=== PATIENT | female | born 1975 | race Caucasian/White ===

== ENCOUNTER 2019-10-08 17:11 | Emergency (ER) | payer OTHER, SELFPAY ==
[2019-10-08 17:19] VITALS: BP 142/83; PULSE 100; RESP 16; TEMP 36.8; O2SAT 99
--- NOTE | 2019-10-08 17:44 | ED.ABDPAIN ---
HPI - Abdominal Pain General Chief Complaint: Dental/Oral Stated Complaint: tooth pain Time Seen by Provider: 10/08/19 17:13 Source: patient Mode of arrival: ambulatory Limitations: no limitations History of Present Illness HPI narrative: Patient is a 44-year-old female who presents for dental pain to the lower gums for the last several days with history of gross decay notes aching pain worse with eating patient denies fever chills vomiting or URI symptoms. Patient does not have a dental appointment plan. Has not taken anything for symptoms Related Data Allergies Allergy/AdvReac Type Severity Reaction Status Date / Time ibuprofen AdvReac Hives Verified 10/08/19 17:24 Review of Systems Review of Systems: All systems reviewed & are unremarkable except as noted in HPI and below PMFSH Social History Social History (Updated 10/08/19 @ 17:48 by Rudi Whitehead PA-C) Smoking status: Current every day smoker Gender identity (if verbalized by the patient): Female Exam Narrative: Exam Narrative: GENERAL: Well-appearing, well-nourished, and in no acute distress. HEAD: Normocephalic, atraumatic. EYES: PERRLA and EOMI. ENT: Nares clear, no rhinorrhea or epistaxis. Mucous membranes moist. Oropharynx without tonsillar hypertrophy exudate or other lesions. Patient was slightly erythematous and swollen gumline with green plaques in between the teeth. Uvula midline no trismus or drooling NECK: Supple. No adenopathy or masses. CHEST: Clear to auscultation. No respiratory distress. No wheezes rales or rhonchi HEART: Regular rate and rhythm. No murmur heard. EXTREMITIES: Normal range of motion. No edema. SKIN: Warm, dry, no rash. NEURO: No focal deficits. Alert and oriented x3. PSYCH: Normal mood and affect. Course Course Emergency Course: Patient in the room in no distress aware of case findings treatment plan and diagnosis agreeing to follow-up as directed or to return if symptoms worsen Vital Signs Vital signs: Vital Signs Temperature 98.3 F 10/08/19 17:19 Pulse Rate 100 10/08/19 17:19 Respiratory Rate 16 10/08/19 17:19 Blood Pressure 142/83 H 10/08/19 17:19 Pulse Oximetry 99 10/08/19 17:19 Temperature 98.3 F 10/08/19 17:19 Pulse Rate 100 10/08/19 17:19 Respiratory Rate 16 10/08/19 17:19 Blood Pressure 142/83 H 10/08/19 17:19 Pulse Oximetry 99 10/08/19 17:19 MDM - Abdominal Pain MDM Narrative Medical decision making narrative: Patients pain and complaint coupled with physical findings are consistent with dentalgia. There are no focal signs of space occupying lesions that are compromising to the airway. The floor of the mouth is soft with no signs of Ludwigs Angina. Patient is without trismus or drooling and able to swallow secretions. Patient is felt appropriate for discharge home with dental follow up. Discharge Plan Discharge Clinical Impression: Gingivitis Patient Disposition: Home, Self-Care Condition: Stable Instructions: Antibiotic Form, Gingivitis (ED) Additional Instructions: Follow-up with dentistry in the next 7 days for reevaluation. Go to ER for shortness of breath, difficulty breathing, chest pain, fever/chills, weakness, nauseau/vomitting, unable to swallow or open the mouth etc. or any other concerns. Take any prescribed medications as directed. If you do not have a drug allergy to tylenol and can tolerate it then take tylenol as needed for discomfort/pain. Prescriptions: New chlorhexidine gluconate [Peridex] 0.12 % mouthwash 15 ml MUCOUS MEM BID Qty: 1500 RF: 0 amoxicillin 500 mg capsule 500 mg PO TID 10 Days Qty: 30 RF: 0 Follow-up/Referrals: PHYSICIAN,TRIALS MANAGER [Primary Care Provider] - Stand Alone Forms: Work/School Release IP
== END 2019-10-08 17:59 | disposition home or self-care (01) ==
PROVIDERS: Emergency Provider Emergency Medicine
DX: K05.10 Chronic gingivitis, plaque induced (principal); F17.200 Nicotine dependence, unspecified, uncomplicated
CPT/HCPCS: 99283

== ENCOUNTER 2020-11-17 10:55 | Emergency (ER) | payer OTHER, SELFPAY ==
[2020-11-17 11:00] VITALS: BP 134/95; PULSE 115; RESP 16; TEMP 37.6; O2SAT 99
--- NOTE | 2020-11-17 11:03 | ED.FEMALEGU ---
HPI - Female Genitourinary General Chief complaint: Urogenital-Female Stated complaint: UTI SYMPTOMS Time Seen by Provider: 11/17/20 11:04 Source: patient and RN notes reviewed History of Present Illness HPI Narrative: Patient is a 45-year-old female who presents the urgent care with complaints of burning with urination and suprapubic pressure with low back pain for a month and a half. Patient states that she has had frequent UTIs in the past but has not had one for approximately 1 year. Patient denies of any blood in the urine, nausea, vomiting, fever. Patient states that she has been taking Azo to mask the symptoms . No other acute complaints. No acute distress noted. Patient aware of the plan of care. Some parts of this dictation were generated by voice recognition software and may contain typographical and/or grammatical inaccuracies. Related Data Allergies Allergy/AdvReac Type Severity Reaction Status Date / Time ibuprofen AdvReac Hives Verified 10/08/19 17:24 Review of Systems Review of Systems: CONSTITUTIONAL: Denies fever, chills, or sweats. EYES: Denies visual changes, redness, or discharge. ENT: Denies rhinorrhea, congestion, sore throat, or otalgia. CARDIOVASCULAR: Denies chest pain, palpitations, or edema. RESPIRATORY: Denies cough or dyspnea. GASTROINTESTINAL: Denies abdominal pain, nausea, vomiting, or diarrhea. GENITOURINARY: Reports of dysuria, suprapubic pressure SKIN: Denies rash or itching. MUSCULOSKELETAL: Denies back pain, joint pain, or myalgia. NEUROLOGIC: Denies headache, numbness, or weakness. All other systems reviewed are negative, except as documented in HPI. PMFSH Social History Social History (Updated 10/08/19 @ 17:48 by Rudi Whitehead PA-C) Smoking status: Current every day smoker Gender identity (if verbalized by the patient): Female Comments At the time of my signature, I reviewed and agree with the nursing past medical, surgical, social, and family history. There is no relevant family history pertinent to the patient complaint. Exam Narrative: GENERAL: This is a well-nourished, well-developed patient, in no apparent distress. HEAD: normocephalic, atraumatic. EYES: PERRL. Sclera clear/white. Vision is grossly intact. EARS: External ears normal NOSE: External nose normal with no obvious nasal discharge, nares without redness, no rhinorrhea. THROAT: Mucous membranes moist NECK: Neck supple CARDIOVASCULAR: Regular rate and rhythm without murmurs, gallops, or rubs. RESPIRATORY: Clear to auscultation. Breath sounds equal bilaterally. No wheezes, rales, or rhonchi. GASTROINTESTINAL: Abdomen soft, suprapubic tenderness, nondistended. Bowel sounds are active. SKIN: warm, intact with no suspicious lesions or rash, good texture and turgor. NEURO: awake, alert, and oriented to person, place and time. There were no obvious focal neurologic abnormalities. EXTREMITIES: No clubbing, cyanosis, or edema. BACK: Bilateral CVA tenderness Course Vital Signs Vital signs: Vital Signs Temperature 99.6 F 11/17/20 11:00 Pulse Rate 115 H 11/17/20 11:00 Respiratory Rate 16 11/17/20 11:00 Blood Pressure 134/95 H 11/17/20 11:00 Pulse Oximetry 99 11/17/20 11:00 Temperature 99.6 F 11/17/20 11:00 Pulse Rate 115 H 11/17/20 11:00 Respiratory Rate 16 11/17/20 11:00 Blood Pressure 134/95 H 11/17/20 11:00 Pulse Oximetry 99 11/17/20 11:00 Reviewed-patient is informed that they may have pre-hypertension or hypertension based on a blood pressure reading in the department. I recommend the patient call the primary care provider listed on their discharge instructions or a physician of their choice this week to arrange follow-up for further evaluation of possible pre-hypertension or hypertension. MDM - Female Genitourinary MDM Narrative Medical decision making narrative: Reviewed lab results with the patient. She is aware that urine analysis does have a trace amount of bacteria
== END 2020-11-17 11:20 | disposition home or self-care (01) ==
PROVIDERS: Emergency Provider Nurse Practitioner Family
DX: N39.0 Urinary tract infection, site not specified (principal); F17.200 Nicotine dependence, unspecified, uncomplicated
CPT/HCPCS: 81003; 87086; 87088; 99213; G0463

== ENCOUNTER 2021-09-05 15:29 | Emergency (ER) | payer OTHER, SELFPAY ==
[2021-09-05 15:34] VITALS: BP 145/83; PULSE 91; RESP 16; TEMP 36; O2SAT 99
--- NOTE | 2021-09-05 15:40 | ED.EAR ---
HPI - Ear Problem General Chief complaint: Ear Stated complaint: l earache Time Seen by Provider: 09/05/21 15:41 Source: patient and RN notes reviewed History of Present Illness HPI Narrative: Patient is a 46-year-old female who presents the urgent care with complaints of left ear pain. Patient states it started 4 days ago and she is continuously rubbed on the ear. Denies of any use of [id number] drops, Q-tips, water or peroxide in the ear. Patient has not taken anything for her pain. Denies any drainage, fever or nausea. Denies of any other upper respiratory complaints. Denies of any exposure to illness. No other acute complaints. No acute distress noted. Patient aware of the plan of care. Some parts of this dictation were generated by voice recognition software and may contain typographical and/or grammatical inaccuracies. Related Data Allergies Allergy/AdvReac Type Severity Reaction Status Date / Time ibuprofen AdvReac Hives Verified 10/08/19 17:24 Review of Systems Review of Systems: CONSTITUTIONAL: Denies fever, chills, or sweats. EYES: Denies visual changes, redness, or discharge. ENT: Denies rhinorrhea, congestion, sore throat. Reports of left otalgia CARDIOVASCULAR: Denies chest pain, palpitations, or edema. RESPIRATORY: Denies cough or dyspnea. GASTROINTESTINAL: Denies abdominal pain, nausea, vomiting, or diarrhea. GENITOURINARY: Denies dysuria or hematuria. SKIN: Denies rash or itching. MUSCULOSKELETAL: Denies back pain, joint pain, or myalgia. NEUROLOGIC: Denies headache, numbness, or weakness. All other systems reviewed are negative, except as documented in HPI. [facility] Social History Social History (Updated 10/08/19 @ 17:48 by Rudi Whitehead, ANGEL) Smoking status: Current every day smoker Gender identity (if verbalized by the patient): Female Comments At the time of my signature, I reviewed and agree with the nursing past medical, surgical, social, and family history. There is no relevant family history pertinent to the patient complaint. Exam Narrative: GENERAL: This is a well-nourished, well-developed patient, in no apparent distress. HEAD: normocephalic, atraumatic. EYES: PERRL. Sclera clear/white. Vision is grossly intact. EARS: External ears normal, mild erythema without edema or drainage to the left auditory canal. Right auditory canals clear and without drainage, TMs normal without perforation. Hearing grossly intact. NOSE: External nose normal with no obvious nasal discharge, nares without redness, no rhinorrhea. THROAT: Mucous membranes moist, posterior pharynx clear. NECK: Neck supple CARDIOVASCULAR: Regular rate and rhythm without murmurs, gallops, or rubs. RESPIRATORY: Clear to auscultation. Breath sounds equal bilaterally. No wheezes, rales, or rhonchi. SKIN: warm, intact with no suspicious lesions or rash, good texture and turgor. NEURO: awake, alert, and oriented to person, place and time. There were no obvious focal neurologic abnormalities. EXTREMITIES: No clubbing, cyanosis, or edema. Course Course Level of Care: Express Care Visit Vital Signs Vital signs: Vital Signs Temperature 96.8 F L 09/05/21 15:34 Pulse Rate 91 09/05/21 15:34 Respiratory Rate 16 09/05/21 15:34 Blood Pressure 145/83 H 09/05/21 15:34 Pulse Oximetry 99 09/05/21 15:34 Temperature 96.8 F L 09/05/21 15:34 Pulse Rate 91 09/05/21 15:34 Respiratory Rate 16 09/05/21 15:34 Blood Pressure 145/83 H 09/05/21 15:34 Pulse Oximetry 99 09/05/21 15:34 Reviewed-patient is informed that they may have pre-hypertension or hypertension based on a blood pressure reading in the department. I recommend the patient call the primary care provider listed on their discharge instructions or a physician of their choice this week to arrange follow-up for further evaluation of possible pre-hypertension or hypertension. Medical Decision Making MDM Narrative Medical decision making narrat
== END 2021-09-05 15:57 | disposition home or self-care (01) ==
PROVIDERS: Emergency Provider Nurse Practitioner Family
DX: H92.02 Otalgia, left ear (principal); F17.200 Nicotine dependence, unspecified, uncomplicated
CPT/HCPCS: 99213; G0463

== ENCOUNTER 2021-10-10 16:34 | Emergency (ER) | payer OTHER, SELFPAY ==
--- NOTE | ~2021-10-10 | CT_ITS ---
EXAMINATION: CT cervical spine wo con DATE: 10/10/2021 19:23 INDICATION: Left arm pain radiating to the shoulder. TECHNIQUE: Computed tomography (CT) of the cervical spine was performed without intravenous contrast. The dose-length product was 119 mGy-cm. Automated exposure control and iterative reconstruction technique were employed. COMPARISON: None FINDINGS: Vertebral body heights are maintained. There is mild degenerative disc disease at C5-6. Wit h mild uncinate degenerative change at C5-6. There is emphysema of the lung apices. No significant pa raspinal soft tissue abnormality. There is mild carotid atherosclerosis. No acute fracture or traumat ic malalignment. No evidence for perched facet. Craniovertebral junction within normal limits. IMPRESSION: 1. No acute abnormality of the cervical spine. 2: Mild cervical spondylosis at C5-6. 3: Emphysema. Reviewed, dictated and finalized at location A.
--- NOTE | ~2021-10-10 | XR_ITS ---
XR shoulder LT min 2V DATE: 10/10/2021 17:37 INDICATION: Left shoulder pain. No injury. TECHNIQUE: 4 views COMPARISON: None FINDINGS: There is minimal degenerative spurring of the left acromioclavicular joint. No fracture or dislocation, periosteal reaction or bone destruction or abnormal soft tissue calcifica tion of the left shoulder. IMPRESSION: Minimal degenerative change at the left acromioclavicular joint Reviewed, dictated and finalized at location A.
[2021-10-10 16:48] VITALS: BP 104/74; PULSE 106; RESP 16; TEMP 37.1; O2SAT 100
--- NOTE | 2021-10-10 16:58 | ECG_ITS ---
Measurements Intervals [place] Rate: 79 P: 74 NV: 112 QRS: 82 QRSD: 82 T: 70 QT: 360 QTc: 414 Interpretive Statements SINUS RHYTHM WITH SHORT NV INTERVAL BORDERLINE ECG Electronically Signed On 10-10-2021 19:46:[address] D[address]
--- NOTE | 2021-10-10 18:32 | ED.UPPEXIN ---
HPI - Extremity Injury (Upper) General Chief Complaint: Extremity Injury, Upper Stated Complaint: L shoulder pain Time Seen by Provider: 10/10/21 18:22 Source: patient Mode of arrival: ambulatory Limitations: no limitations History of Present Illness HPI narrative: This is a 46-year-old female that presents to the emergency department for left shoulder pain. Ongoing over the last 4 days. No recent injury or trauma. The pain is in the posterior aspect of the shoulder and radiates into her arm. She also reports she has some tingling in her left arm. Denies fever, edema, chest pain, shortness of breath, or focal numbness or weakness. Related Data Allergies Allergy/AdvReac Type Severity Reaction Status Date / Time ibuprofen AdvReac Hives Verified 10/08/19 17:24 Review of Systems Review of Systems: CONSTITUTIONAL: Denies fever CARDIOVASCULAR: Denies chest pain RESPIRATORY: Denies dyspnea. MUSCULOSKELETAL: Reports back pain, joint pain, and myalgia. NEUROLOGIC: Denies numbness, or weakness. All systems reviewed & are unremarkable except as noted in HPI and below PMFSH Past Medical History Medical History (Updated 10/10/21 @ 20:44 by Honey Mathias PA-C) No active medical problems Social History Social History (Updated 10/08/19 @ 17:48 by Rudi Whitehead, PAIanC) Smoking status: Current every day smoker Gender identity (if verbalized by the patient): Female Exam Narrative: GENERAL: Well-appearing, well-nourished, and in no acute distress. HEAD: Normocephalic, atraumatic. EYES: EOMI. CHEST: Clear to auscultation. No respiratory distress. No wheezes rales or rhonchi HEART: Regular rate and rhythm. No murmur heard. Normal peripheral pulses. EXTREMITIES: Pain is reproduced with active range of motion in the left shoulder. Decreased active ROM in the left shoulder above 90 degrees due to pain. Tender to palpation of the left thoracic paraspinal musculature. No edema, erythema or warmth. Normal radial pulse. Strength equal in bilateral upper extremities (5/5) SKIN: Warm, dry, no rash. NEURO: No focal deficits. Alert and oriented x3. PSYCH: Normal mood and affect Course Vital Signs Vital signs: Vital Signs Temperature 98.7 F 10/10/21 16:48 Pulse Rate 106 H 10/10/21 16:48 Respiratory Rate 16 10/10/21 16:48 Blood Pressure 104/74 10/10/21 16:48 Pulse Oximetry 100 10/10/21 16:48 Oxygen Delivery Room Air 10/10/21 16:48 Temperature 98.7 F 10/10/21 16:48 Pulse Rate 86 10/10/21 21:17 Respiratory Rate 18 10/10/21 21:17 Blood Pressure 156/76 H 10/10/21 21:17 Pulse Oximetry 100 10/10/21 21:17 Oxygen Delivery Room Air 10/10/21 16:48 MDM - Extremity Injury (Upper) MDM Narrative Medical decision making narrative: Patient presents to the emergency department for left arm pain. Ongoing over the last 4 days. No recent injury or trauma. Patient is neurovascularly intact. Left shoulder x-ray shows minimal degenerative change at the left AC joint. CT scan of the cervical spine is without acute abnormalities. Shows mild cervical spondylosis at C5/C6. EKG without concerning ST changes. Patient reports relief with Tylenol and Valium. Will be prescribed steroid taper as well. Will be given neurosurgery for follow-up. She was given warnings to return to the ER Imaging Data Radiologist's impression: ITS Impressions Shoulder X-Ray 10/10/21 17:39 IMPRESSION: Minimal degenerative change at the left acromioclavicular joint Cervical Spine CT 10/10/21 19:31 IMPRESSION: 1. No acute abnormality of the cervical spine. 2: Mild cervical spondylosis at C5-6. 3: Emphysema. ECG Data EKG #1: ECG completion date: 10/10/21 EKG Interpretation: normal rate, sinus rhythm, no ST changes and normal QT Critical Care Time Critical Care Time Critical Care Time: No Discharge Plan Discharge Clinical Impression: Cervical radiculopathy, Muscle sp
[2021-10-10] MEDS: ACETAMINOPHEN 500 MG TABLET 1000 MG PO (19:25)
[2021-10-10] MEDS: diazePAM INJ (*CRX) 10 MG/2 ML SYRINGE 5 MG IM (19:26)
[2021-10-10 19:30] VITALS: BP 166/92; PULSE 68; RESP 16; O2SAT 100
[2021-10-10 21:17] VITALS: BP 156/76; PULSE 86; RESP 18; O2SAT 100
== END 2021-10-10 21:17 | disposition home or self-care (01) ==
PROVIDERS: Emergency Provider General Practice
DX: M54.12 Radiculopathy, cervical region (principal); M62.830 Muscle spasm of back; F17.200 Nicotine dependence, unspecified, uncomplicated
CPT/HCPCS: 72125; 73030; 93005; 96372; 99284; A9270; J3360

== ENCOUNTER 2022-01-03 15:28 | Outpatient (CLI) | payer OTHER, SELFPAY ==
--- NOTE | ~2022-01-03 | MR_ITS ---
EXAMINATION: MR cervical spine wo con DATE: 01/03/2022 16:07 INDICATION: Neck pain. TECHNIQUE: Magnetic resonance imaging (MRI) of the cervical spine was performed without intravenous c ontrast. Sequences included sagittal T2-weighted FSE, sagittal T2-weighted FS FSE, sagittal T1-weight ed FSE, axial MERGE, and axial T2-weighted FSE. COMPARISON: CT cervical spine 10/10/2021 FINDINGS: There is 4 degrees levocurvature of cervical spine. Vertebral body heights are normal. Ther e is moderately decreased disc height at C5-C6. The spinal cord signal intensity is normal. The follo wing disc levels are specifically discussed: C2-C3: The disc does not extend beyond the endplate margin. There is no uncovertebral joint osteoarth ritis. There is moderate bilateral facet joint osteoarthritis. There is no neural foraminal stenosis. There is no central canal stenosis. C3-C4: There is a central protrusion. There is mild left uncovertebral joint osteoarthritis. There is mild bilateral facet joint osteoarthritis. There is no neural foraminal stenosis. There is no centra l canal stenosis. C4-C5: There is a central protrusion. There is mild left uncovertebral joint osteoarthritis. There is mild right facet joint osteoarthritis. There is no neural foraminal stenosis. There is no central ca nal stenosis. C5-C6: The disc is bulging. There is severe bilateral uncovertebral joint osteoarthritis. There is mi ld right facet joint osteoarthritis. There is mild bilateral neural foraminal stenosis. There is mild central canal stenosis. C6-C7: The disc does not extend beyond the endplate margins. There is mild right and moderate left un covertebral joint osteoarthritis. There is no facet joint osteoarthritis. There is mild left neural f oraminal stenosis. There is no central canal stenosis. C7-T1: The disc does not extend beyond the endplate margin. There is no uncovertebral joint osteoarth ritis. There is mild bilateral facet joint osteoarthritis. There is no neural foraminal stenosis. The re is no central canal stenosis. IMPRESSION: 1. Moderate spondylosis at C5-C6 and mild spondylosis at other levels. Reviewed, dictated and finalized at location A.
--- NOTE | ~2022-01-03 | XR_ITS ---
XR cervical spine 4-5V 01/03/2022 16:13 Indication: Cervicalgia Procedure: 5 views of the cervical spine including flexion/extension views Comparison: No prior studies for comparison. Findings: There is degenerative disc disease at C5-6. No prevertebral soft tissue swelling. There is mild uncinate hypertrophy at C3-4 and C4-5. Lung apices are normal. No significant alteration of alig nment with flexion/extension. No fracture or traumatic malalignment. Impression: 1: Mild cervical spondylosis. Reviewed, dictated and finalized at location A. Impression: 1: Mild cervical spondylosis.
== END 2022-01-03 15:29 | disposition home or self-care (01) ==
PROVIDERS: Visit Provider Neurological Surgery
DX: M47.813 Spondylosis without myelopathy or radiculopathy, cervicothoracic region (principal); M48.03 Spinal stenosis, cervicothoracic region
CPT/HCPCS: 72050; 72141

== ENCOUNTER 2023-07-21 09:54 | Emergency (ER) | payer OTHER, SELFPAY ==
[2023-07-21 09:58] VITALS: BP 145/80; RESP 16; TEMP 37.1; O2SAT 99
--- NOTE | 2023-07-21 10:16 | ED.EAR ---
HPI - Ear Problem General Chief complaint: Ear Stated complaint: Earache Time Seen by Provider: 07/21/23 10:06 Source: patient and RN notes reviewed Mode of arrival: ambulatory Limitations: no limitations History of Present Illness HPI Narrative: Patient presents today complaining of a 4 day history of bilateral ear canal pain, swelling, and pressure, right greater than left. Denies any injury or trauma. She does not wear ear plugs or ear buds frequently. She has not been doing a lot of swimming recently. She currently rates her pain 7/10 and has been taking Tylenol with mild relief. Her hearing is normal. Related Data Home Medications Medication Instructions Recorded Confirmed acetaminophen 500 mg tablet 1,000 mg PO Q6H PRN Pain 12/20/21 07/21/23 (Tylenol Extra Strength) Allergies Allergy/AdvReac Type Severity Reaction Status Date / Time ibuprofen AdvReac Hives Verified 07/21/23 10:00 Review of Systems Review of Systems: CONSTITUTIONAL: Denies body aches, fever, chills, or sweats. EYES: Denies visual changes, redness, or discharge. ENT: Denies rhinorrhea, congestion, sore throat. + bilateral ear pain CARDIOVASCULAR: Denies chest pain, palpitations, or edema. RESPIRATORY: Denies cough or dyspnea. GASTROINTESTINAL: Denies abdominal pain, nausea, vomiting, or diarrhea. GENITOURINARY: Denies dysuria or hematuria. SKIN: Denies rash, itching, or wounds. MUSCULOSKELETAL: Denies back pain, joint pain, or myalgia. NEUROLOGIC: Denies headache, numbness, tingling, or weakness. PSYCH: Denies depression or anxiety. [facility] Past Medical History Medical History No active medical problems Social History Social History Smoking status: Current every day smoker Gender identity (if verbalized by the patient): Female Comments At time of signature, I have reviewed and agree with nursing past medical, surgical, social and family history unless otherwise noted. Please see nursing chart for further information. There is no relevant family history pertinent to the presenting complaint Exam Narrative: GENERAL: Well-appearing, well-nourished, and in no acute distress. HEAD: Normocephalic, atraumatic. EYES: EOMI. No redness or drainage. Conjunctivae normal. ENT: Mucous membranes pink and moist. Nares clear. No rhinorrhea. TMs normal bilaterally. Bilateral movement tenderness and tragal tenderness, right greater than left. Bilateral pain with ear probe insertion. Bilateral ear canal mild erythema without edema. No drainage. NECK: Normal AROM. CHEST: No respiratory distress. EXTREMITIES: Normal range of motion. No edema. SKIN: Warm, dry, no rash. Capillary refill normal. Normal skin turgor. NEURO: No focal deficits. Alert and oriented x3. Gait steady. PSYCH: Normal affect. No signs of depression or anxiety. Course Course Level of Care: Express Care Visit Vital Signs Vital signs: Vital Signs Temperature 98.8 F 07/21/23 09:58 Respiratory Rate 16 07/21/23 09:58 Blood Pressure 145/80 H 07/21/23 09:58 Pulse Oximetry 99 07/21/23 09:58 Oxygen Delivery Room Air 07/21/23 09:58 Temperature 98.8 F 07/21/23 09:58 Respiratory Rate 16 07/21/23 09:58 Blood Pressure 145/80 H 07/21/23 09:58 Pulse Oximetry 99 07/21/23 09:58 Oxygen Delivery Room Air 07/21/23 09:58 Reviewed Medical Decision Making MDM Narrative Medical decision making narrative: Patient will be treated with a course of Ciprodex for bilateral otitis externa. She has been instructed to follow-up with PCP if symptoms do not improve. Anticipatory guidance given. Differential Diagnosis Differential Diagnosis: Otitis media, otitis externa, ruptured TM, serous otitis, eustachian tube dysfunction, cerumen impaction Vital Signs Vital Signs: Vital Signs Temperature 98.8 F
== END 2023-07-21 10:25 | disposition home or self-care (01) ==
PROVIDERS: Emergency Provider Nurse Practitioner
DX: H60.503 Unspecified acute noninfective otitis externa, bilateral (principal); F17.200 Nicotine dependence, unspecified, uncomplicated
CPT/HCPCS: 99213; G0463

== ENCOUNTER 2024-08-31 17:22 | Emergency (ER) | payer OTHER, SELFPAY ==
--- NOTE | ~2024-08-31 | XR_ITS ---
XR elbow RT min 3V Ordering provider: Tere Stout NP History: . pain after hitting on the window . Comparison: None. FINDINGS: BONES: No acute fracture or dislocation. JOINT SPACES: Normal. SOFT TISSUES: Unremarkable. No definite joint effusion. IMPRESSION: No acute osseous abnormality of the right elbow. Reviewed, dictated and finalized at location A.
[2024-08-31 17:30] VITALS: BP 162/85; PULSE 76; RESP 16; TEMP 36.6; O2SAT 100
--- NOTE | 2024-08-31 17:38 | ED_ITS ---
HPI - Extremity Injury (Upper) General Chief Complaint: Extremity Injury, Upper Stated Complaint: Injured Elbow Time Seen by Provider: 08/31/24 17:39 Source: patient, RN notes reviewed and old records reviewed Mode of arrival: ambulatory Limitations: no limitations History of Present Illness HPI narrative: 49 year old female who presents to [facility] with complaint of pulling the duct tape off of window and tape gave way and her arm hit the window sill right on the olecranon area with pain and bruising to right elbow. Patient reports that she has throbbing pain to her elbow and some pain that goes down her arm with some tingling to fingers. Patient has increased discomfort to right elbow area with pronation and supination of forearm. Patient does have some bruising noted to the right elbow with minimal swelling. MD complaint: injury to: right and elbow Onset (ago): day(s) (2) Place: home Severity scale (1-10): 8 Exacerbating factors: movement of extremity Treatments prior to arrival: other (Tylenol) Related Data Home Medications ?Medication ?Instructions ?Recorded ?Confirmed ?Last Taken ?Type acetaminophen 500 mg tablet 1,000 mg PO Q6H PRN Pain 12/20/21 03/10/24 Unknown History (Tylenol Extra Strength) Allergies Allergy/AdvReac Type Severity Reaction Status Date / Time ibuprofen AdvReac Hives Verified 08/31/24 17:39 Review of Systems Review of Systems: CONSTITUTIONAL: Denies fever, chills, or sweats. EYES: Denies visual changes, redness, or discharge. ENT: Denies rhinorrhea, congestion, sore throat, or otalgia. CARDIOVASCULAR: Denies chest pain, palpitations, or edema. RESPIRATORY: Denies cough or dyspnea. GASTROINTESTINAL: Denies abdominal pain, nausea, vomiting, or diarrhea. GENITOURINARY: Denies dysuria or hematuria. SKIN: Denies rash or itching. MUSCULOSKELETAL: Denies back pain,positive for pain to the right elbow along olecranon process with some bruising and swelling, or myalgia. NEUROLOGIC: Denies headache, numbness, or weakness. PSYCHIATRIC: Denies anxiety or depression. All systems reviewed & are unremarkable except as noted in HPI and below PMFSH Past Medical History Medical History Right arm fracture Screening mammogram, encounter for Migraines No active medical problems Surgical History Surgical History History of endometrial ablation History of colposcopy (08/14/09) H/O LEEP (08/24/09) leep/bx - HGSIL JEN III - involves margins History of colposcopy (12/18/09) colp/bx - benign ectocervical tissues History of gynecological procedure (01/12/15) dx laparoscopy - pelvic pain & dyspareunia - no abnormality History of hysteroscopy (08/08/16) Hscope D&C/ ablation menometrorrhagia; Dysmenorrhea- benign History of colposcopy (10/15/17) colposcopy- LGSIL JEN 1 H/O LEEP (11/06/17) Hx of ovarian cystectomy (04/30/18) left Family History Family History Sibling Diabetes mellitus sister Hypertension sister Acute myocardial infarction sister Cerebrovascular accident sister Mother H/O ovarian cancer Social History Social History Smoking packs per day: 1 Smoking cigarettes per day: 20.0 Smoking status: Current every day smoker Tobacco type: cigarettes Second hand tobacco smoke exposure: Yes Alcohol intake: current Alcohol use details: 2-3 a month Substance use: current Substance use type: marijuana Other substance usage details: daily Do You Feel Safe in your Home?: Yes Lack of Transportation: No Lack of Food: Never True Current Housing: I Have Housing Concerned About Future Housing: Decline to Answer Difficulty Paying Gas/Electric Bills: Decline to Answer Difficulty Paying for Meds: No Currently Unemployed: YES Education: Decline to Answer Difficulty w/ Childcare or Family Care: No Living arrangements: other Additional living arrangements comments: Occupation/Education: occupation 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 There is no relevant family history pertinent to the presenting complaint Exam Narrative: GENERAL: Well-appearing, well-nourished, and in no acute distress. HEAD: Normocephalic, atraumatic. EYES: PERRLA and EOMI. ENT: Nares clear, no rhinorrhea or epistaxis. Mucous membranes moist. NECK: Supple. no lymphadenopathy CHEST: Clear to auscultation. No respiratory distress.SAO2 100% on room air HEART: Regular rate and rhythm. No murmur heard. Normal peripheral pulses. ABDOMEN: Soft, nontender, nondistended, normal active bowel sounds. EXTREMITIES: Normal range of motion. No edema.Exception noted to right elbow which patient reports pain especially with movement, some mild swelling and bruising to the right elbow. circulation is intact to right arm and hand, strong pulses, states some radiation of pain down arm and some intermittent tingling to fingers, nail beds have brisk capillary refill full mobility of hand and wrist with pain to elbow region with movement. SKIN: Warm, dry, no rash. NEURO: No focal deficits. Alert and oriented x3. Course Course Emergency Course: Patient is aware of diagnosis, understands and agrees to treatment plan.? Anticipatory guidance given.? Patient agrees to follow-up as directed and is aware of reasons to seek care at the emergency department. Portions of this record may have been created with voice recognition software Level of Care: Express Care Visit Vital Signs Vital signs: Vital Signs Temperature 36.6 C 08/31/24 17:30 Pulse Rate 76 08/31/24 17:30 Respiratory Rate 16 08/31/24 17:30 Blood Pressure 162/85 H 08/31/24 17:30 Pulse Oximetry 100 08/31/24 17:30 Temperature 36.6 C 08/31/24 17:30 Pulse Rate 76 08/31/24 17:30 Respiratory Rate 16 08/31/24 17:30 Blood Pressure 162/85 H 08/31/24 17:30 Pulse Oximetry 100 08/31/24 17:30 Reviewed MDM - Extremity Injury (Upper) Differential Diagnosis Differential diagnosis: Likely other (pain to right elbow, tendonitis of right elbow, contusion right elbow) Medical Records Attestation: I reviewed the patient's medical records. Imaging Data My impression: no acute joint effusion, no fracture or dislocation of right elbow Radiologist's impression: [facility] [address] [place] [address] XRay Report Signed Patient: Jackelyn Hayes : 1975 MR#: [id number] Age: 49 Acct:[id number] Loc: [id number] ADM Date: 08/31/24Attending Dr: Ordering Physician: Tere Stout APRN Date of Service: 08/31/24 Procedure(s): XR elbow RT min 3V Accession Number(s): [id number] cc: ENV[employer] PHYSICIAN; Tere Stout APRN~ XR elbow RT min 3V Ordering provider: Tere Stout NP History: . pain after hitting on the window . Comparison: None. FINDINGS: BONES: No acute fracture or dislocation. JOINT SPACES: Normal. SOFT TISSUES: Unremarkable. No definite joint effusion. IMPRESSION: No acute osseous abnormality of the right elbow. Reviewed, dictated and finalized at location A. Please be advised this is a medical document. It is intended for [id number] communication. It is written in medical language and may contain unfamiliar abbreviations or verbiage. Medical documents are intended to carry relevant information, facts as evident, and the clinical opinion of the practitioner at the time of the encounter. This report may have been done utilizing a voice recognition system. Attempts have been made to correct errors. However, there may be uncorrected grammatical, spelling, and recognition errors present. The file time of this note does not necessarily represent the time of service. Dictated By: Mynor Wyatt MD 08/31/24 1753 Signed By: <Electronically signed by Mynor Wyatt MD in OV> Critical Care Time Critical Care Time Critical Care Time: No Discharge Plan Discharge Clinical Impression: Contusion of elbow, right Qualifiers: Encounter type: initial encounter Qualified Code(s): S50.01XA - Contusion of right elbow, initial encounter Patient Disposition: Home Condition: Stable Instructions: Contusion in Adults (ED), Arthralgia (ED) Additional Instructions: Tylenol for pain Prednisone 20 mg po BID daily for 5 days Follow-up with orthopedic surgeon if any continued pain or concern Follow-up with PCP if further problems or concerns Ice to the area 20-30 minutes 4-6 times a day Elevate above heart If your symptoms persist, change or worsen significantly before you can contact your personal physician then please, without delay, go to the emergency department for further evaluation. Follow-up with PCP in 7-10 days or sooner if needed Follow up with PCP soon in regards to your blood pressure which is elevated above threshold for referral. Blood pressure above 120/80 may indicate pre- hypertension. 162/85 Patient Language: Mosotho Prescriptions: New prednisone 20 mg tablet 20 mg PO BID Qty: 10 0RF Rx Instructions: take with food No Action acetaminophen [Tylenol Extra Strength] 500 mg tablet 1,000 mg PO Q6H PRN (Reason: Pain) estradiol 1 mg tablet 1 mg PO DAILY Qty: 90 3RF progesterone micronized [Prometrium] 200 mg capsule 200 mg PO QHS 90 Days Qty: 90 3RF estradiol-norethindrone acet [Activella] 1-0.5 mg tablet 1 tablet PO DAILY Qty: 84 3RF Follow-up/Referrals: PHYSICIAN,ENVELOPE MAKER [Primary Care Provider] - Time of Disposition: 18:04 Quality [place] Coma Scale Eyes: Open Verbal: Oriented and Alert Motor: Follows Commands [place] Coma Total Score: 15
== END 2024-08-31 18:05 | disposition home or self-care (01) ==
PROVIDERS: Emergency Provider Registered Nurse
DX: S50.01XA Contusion of right elbow, initial encounter (principal); F17.210 Nicotine dependence, cigarettes, uncomplicated; W22.8XXA Striking against or struck by other objects, initial encounter
CPT/HCPCS: 73080; 99213; G0463